=== PATIENT | female | born 1945 | race Caucasian/White ===

== ENCOUNTER → 2017-05-28 | Outpatient (CLI) | payer MEDICARE ==
[~2017-05-28] MED LIST: FLUO40CA67 PO; LECI400C PO
--- NOTE | 2017-05-29 12:23 | RADIOLOGY IMAGING REPORT ---
FACILITY: [facility] - [place] PATIENT NAME: BHAVYA LOBO : [id number] MR: [id number] V: [id number] EXAM DATE: ORDERING PHYSICIAN: ANAI HAYDEN TECHNOLOGIST: Brie Ambriz PROCEDURE:BILATERAL DIAGNOSTIC DIGITAL MAMMOGRAM WITH CAD ASSISTED INTERPRETATION AND 3D BREAST TOMOSYNTHESIS. COMPARISON:Prior mammograms dated 03/08/17nd 02/22/17. INDICATIONS:HISTORY OF LEFT BREAST LESION. FINDINGS: Moderately dense fibroglandular tissue is seen throughout the breasts. The parenchymal pattern has remained stable when allowing for difference in mammographic technique and patient positioning. The ovoid nodular density in the 9 o'clock position of the right breast containing coarse calcifications has remained stable. There is a biopsy clip in the upper outer quadrant of the left breast just medial to the previously noted well circumscribed nodule that has also remained stable. There is no evidence of malignant appearing mass or calcification in either breast at this time. DIAGNOSTIC CATEGORY 2--BENIGN FINDING. RECOMMENDATIONS: ROUTINE MAMMOGRAM AND CLINICAL EVALUATION. IMPRESSION: BI-RADS 2: No significant abnormality seen. Images were reviewed with R2CAD and 3D breast tomosynthesis. Dictated by: Usha Dean M.D. on 05/28/2017 at 16:54 Transcribed by: AMY on 05/28/2017 at 19:04 Approved by: Usha Dean M.D. on 05/29/2017 at 12:22 [facility]
--- NOTE | 2017-05-29 12:24 | RADIOLOGY IMAGING REPORT ---
FACILITY: [facility] - [place] PATIENT NAME: BHAVYA LOBO : [id number] MR: [id number] V: [id number] EXAM DATE: ORDERING PHYSICIAN: ANAI HAYDEN TECHNOLOGIST: Jennifer Lam PROCEDURE:US LEFT BREAST COMPLETE COMPARISON:None. INDICATIONS:HISTORY OF LEFT BREAST LESION FOLLOWUP. FINDINGS: In the 3:30 position of the left breast again noted is the small well circumscribed hypoechoic nodule with an echogenic hilum likely representing a tiny 4 mm intermammary lymph node. There is a tiny echogenic focus of acoustic shadowing in the approximate 3:30 position of the left breast which may represent the previous biopsy clip. No other lesions are identified within the left breast at this time. DIAGNOSTIC CATEGORY 2--BENIGN FINDING. RECOMMENDATIONS: ROUTINE MAMMOGRAM AND CLINICAL EVALUATION. IMPRESSION: BI-RADS 2: There is a tiny intermammary lymph node in the 3:30 position of the left breast. No other sonographic masses were identified. Dictated by: Usha Dean M.D. on 05/28/2017 at 16:59 Transcribed by: AMY on 05/28/2017 at 19:10 Approved by: Usha Dean M.D. on 05/29/2017 at 12:22 [facility]
== END ==
LOC: MAMO 01:49
PROVIDERS: ATTEND Surgery
DX: R59.9 Enlarged lymph nodes, unspecified (principal)
CPT/HCPCS: 77062; 77066

== ENCOUNTER → 2017-08-20 | Outpatient (CLI) | payer MEDICARE ==
[~2017-08-20] MED LIST changes: +GADOBENATE 529MG/1ML 15ML VIAL IVP ONE
--- NOTE | 2017-08-20 12:33 | RADIOLOGY IMAGING REPORT ---
FACILITY: [facility] - [place] PATIENT NAME: Tahira Barriga : 1945 MR: [id number] V: [id number] EXAM DATE: ORDERING PHYSICIAN: MARY JENSEN TECHNOLOGIST: Location: [facility] - [place] Patient: Tahira Barriga : 1945 Visit/Account:[id number] Date of Sevice: 08/20/2017 Examination: MR brain without and with contrast History: Vertigo Comparison: None Technique: Multiplane MR imaging was performed through the brain without and with contrast. 15 cc IV multihance was administered. Findings: Diffusion: None Ventricles: Normal Midline shift: None Extraxial fluid: None Midline craniocervical structures: Normal Parenchyma: Chronic lacunar infarct in the left frontal periventricular white matter. Minimal conflue nt periventricular white matter high signal. Mild patchy high signal within the bruno. Enhancement: No pathologic enhancement Vascular flow voids: Normal Orbits and paranasal sinuses: Normal Impression: 1. No acute finding. 2. Chronic left frontal periventricular lacunar infarct. 3. Mild chronic small vessel ischemic change. 4. Otherwise normal brain MR without and with contrast. Report Dictated By: Jacques Bryan MD at 08/20/2017 12:23 PM Report E-Signed By: Jacques Bryan MD at 08/20/2017 12:28 PM WSN:[id number]
== END ==
LOC: MRI 00:51
PROVIDERS: ATTEND Physician Assistant Medical
DX: I67.82 Cerebral ischemia (principal); I63.8 Other cerebral infarction
CPT/HCPCS: 70553; A9577